=== PATIENT | male | born 1965 | race Caucasian/White ===

== ENCOUNTER 2021-03-06 00:22 | Emergency (ER) | payer OTHER, BC ==
[~2021-03-06] VITALS: Ht 185.4 cm; Wt 131.0 kg
[~2021-03-06 00:22] MED LIST: GLIM1TAB7 PO; HYDR-2145 PO; LISI20TA18 PO; METF500T16 PO
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
[2021-03-06 01:38] VITALS: BP 158/74
== END 2021-03-06 01:45 | disposition home or self-care (01) ==
LOC: ER 00:22
DX: S00.01XA Abrasion of scalp, initial encounter (principal); M54.50 Low back pain, unspecified; V49.49XA Driver injured in collision with other motor vehicles in traffic accident, initial encounter; Y92.488 Other paved roadways as the place of occurrence of the external cause; Y93.89 Activity, other specified; Y99.8 Other external cause status
CPT/HCPCS: 70450; 99285-25